=== PATIENT | male | born 1985 | race Caucasian/White ===

== ENCOUNTER 2021-04-19 14:19 | Emergency (ER) | payer OTHER ==
[2021-04-19 14:48] VITALS: BP 139/90; PULSE 62; TEMP 98.5; BMI 30.8
[2021-04-19] MEDS ORDERED: IBUPROFEN 600 MG TABLET (FP) PO ONE ×2 (14:57→15:02)
== END 2021-04-19 15:12 | disposition home or self-care (01) ==
LOC: FER 14:19
DX: S05.01XA Injury of conjunctiva and corneal abrasion without foreign body, right eye, initial encounter (principal); W26.8XXA Contact with other sharp object(s), not elsewhere classified, initial encounter; Y92.29 Other specified public building as the place of occurrence of the external cause
CPT/HCPCS: 99283-25